=== PATIENT | female | born 1945 | race Caucasian/White ===

== ENCOUNTER → 2016-06-15 | Outpatient (CLI) | payer OTHER, MEDICARE ==
--- NOTE | 2016-06-15 11:13 | MA ---
Screening Digital Mammogram Clinical Indications: Routine screening. Technique: Standard cephalocaudal and mediolateral oblique projections are obtained. This examinati on is processed by the [employer] computer aided detection system. Comparison: February 08, 2015; August 13, 2012; and studies dating back to September 23, 2008. Breast density: B; There are scattered areas of fibroglandular density. Findings: CAD was reviewed. No suspicious findings are identified. There are no new masses, new clus ters of microcalcifications, or significant axillary lymphadenopathy. Impression: Negative mammogram. BI-RADS 1. Recommendation: Routine screening is recommended in one year. [facility] will send a result letter to the patient. Negative mammography should not preclude additional workup of a clinically suspicious finding. The patient's information is entered into a reminder system with a target due date for her next mammo gram.
== END ==
LOC: FIMAGING 10:17
DX: Z12.31 Encounter for screening mammogram for malignant neoplasm of breast (principal)
CPT/HCPCS: G0202

== ENCOUNTER → 2016-08-23 | Outpatient (CLI) | payer OTHER, MEDICARE | LOC: BMCIMAGING 11:34 | PROVIDERS: ATTEND Family Medicine | DX: R93.8 Abnormal findings on diagnostic imaging of other specified body structures (principal); N83.201 Unspecified ovarian cyst, right side; Z78.0 Asymptomatic menopausal state ==

== ENCOUNTER → 2016-08-24 | Outpatient (CLI) | payer OTHER, MEDICARE | LOC: BMCIMAGING 08:31 | PROVIDERS: ATTEND Family Medicine | DX: K80.20 Calculus of gallbladder without cholecystitis without obstruction (principal); K76.89 Other specified diseases of liver ==

== ENCOUNTER 2016-09-21 09:45 | Observation (INO) | payer OTHER, MEDICARE ==
[2016-09-21] MEDS ORDERED: PROPOFOL 200 MG/20 ML VIAL ONE (10:36)
[2016-09-21] MEDS ORDERED: ROCURONIUM 50 MG/5 ML VIAL ONE ×3 (10:37→12:18)
[2016-09-21] MEDS ORDERED: DEXAMETHASONE 4 MG/ML VIAL ONE (10:37)
[2016-09-21] MEDS ORDERED: SURGIFLO MATRIX KIT WITH THROMBIN TP ONE (10:57)
[2016-09-21] MEDS ORDERED: BUPIVACAINE 0.25% 30 ML SDV ONE (10:57)
[2016-09-21] MEDS ORDERED: BUPIVACAINE 0.5% 30 ML SDV ONE (10:57)
[2016-09-21] MEDS ORDERED: SILVER NITRATE APPLICATOR 1 APPL TP ONE (10:58)
[2016-09-21] MEDS ORDERED: cefOXitin SODIUM 1 GM in D5W 50 ML IV ONE (11:00)
[2016-09-21] MEDS ORDERED: METHYLENE BLUE 0.5% 50 MG/10 ML AMP ONE (11:00)
[2016-09-21] MEDS ORDERED: MIDAZOLAM 2 MG/2 ML VIAL ONE (11:05)
[2016-09-21] MEDS ORDERED: PHENYLEPHRINE HCL 100 MCG/ML SYR ONE (11:34)
[2016-09-21] MEDS ORDERED: PHENYLEPHRINE 10 MG/ML SDV ONE (12:06)
[2016-09-21] MEDS ORDERED: ONDANSETRON 4 MG/2 ML VIAL ONE ×2 (12:34→14:37)
[2016-09-21] MEDS ORDERED: GLYCOPYRROLATE 0.2 MG/1 ML VIAL ONE (12:37)
[2016-09-21] MEDS ORDERED: NEOSTIGMINE METHYLSULFATE 5 MG/5 ML SYR ONE (12:37)
[2016-09-21] MEDS ORDERED: KETOROLAC 30 MG/1 ML SDV ONE (12:52)
[2016-09-21] MEDS ORDERED: ONDANSETRON 4 MG/2 ML VIAL IVP PRN (13:06)
[2016-09-21] MEDS ORDERED: HYDROCODONE/APAP 5/325 TAB PO PRN (13:06)
[2016-09-21] MEDS ORDERED: ONDANSETRON DISINTEGRATING 4 MG TAB PO PRN (13:06)
[2016-09-21] MEDS ORDERED: IBUPROFEN 200 MG TAB PO PRN (13:06)
[2016-09-21] MEDS ORDERED: ACETAMINOPHEN 325 MG TAB PO PRN (13:06)
--- NOTE | 2016-09-21 13:13 | POSTOPPROG ---
Post Op Note Date of Operation: 09/21/16 Surgeon: Cruzito Bourgeois Medical Charge Entry Specialist: Dr. Hodge Anesthesiologist: oLnny Anesthesia: GET(General Endotracheal) Pre-op Diagnosis: Cholelithiasis, ovarian cyst Post-op Diagnosis: same Procedure: lap aline, lap BSO, uterine biopsy Inf/Abcess present in the surg proc area at time of surgery?: No EBL: Minimal
[2016-09-21] MEDS ORDERED: NS 1,000 ML IV SCH (13:15)
[2016-09-21] MEDS ORDERED: fentaNYL 100 MCG/2 ML INJ ONE (13:47)
--- NOTE | 2016-09-21 14:00 | GOP ---
[f rep st] OPERATIVE REPORT DATE OF OPERATION: 09/21/2016 SURGEON: Brooklyn Hodge MD ANESTHESIA: General with ET tube. ANESTHESIOLOGIST: Paras Mukherjee MD. PREOPERATIVE DIAGNOSIS: 1. 11 mm right ovarian cyst. 2. Endometrial thickening. 3. Symptomatic cholelithiasis. POSTOPERATIVE DIAGNOSIS: 1. 11 mm right ovarian cyst. 2. Endometrial thickening. 3. Symptomatic cholelithiasis. PROCEDURE PERFORMED: 1. Diagnostic laparoscopy. 2. Lysis of adhesions. 3. Cholecystectomy. 4. Bilateral salpingo-oophorectomy. 5. Dilation and curettage. FINDINGS: Moderate adhesive disease of the bowel to the anterior abdominal wall. Normal uterus, normal left tube and ovary. Sigmoid adhesions at the level of the left IP. Right ovary with a small 1 cm simple appearing cyst. SPECIMENS: Gallbladder, bilateral tubes and ovaries, endometrial curettings. ESTIMATED BLOOD LOSS: 20 mL. INDICATIONS: Patient is a 71-year-old who presents with findings of an 11 mm right ovarian cyst after presenting with abdominal pain and also with findings of gallstones. She was incidentally also found to have a thickened endometrial stripe to 9 mm with no history of postmenopausal vaginal bleeding. Uterine biopsy had been attempted in the office, but insufficient tissue was obtained. She was taken to the operating room after being consented for a bilateral salpingo-oophorectomy, removal of her gallbladder, and repeat endometrial sampling. The risks and benefits of the procedure were discussed, and she desired to proceed with all the procedures concurrently. DESCRIPTION OF PROCEDURE: The patient was taken to the operating room, where a time-out was performed. General anesthesia was obtained with endotracheal tube. She was prepped and draped in the normal sterile fashion in dorsal lithotomy with Roger stirrups. A Marrufo catheter was placed. A sponge stick was placed in the vagina. After injection of 0.25% marcaine a 5 mm incision was made just above the umbilicus. The veress needle was inserted and the abdomen was insufflated to 10 mm hg. Additional ports were placed including a 10 mm upper abdominal port and 2 additional lateral ports under direct visualization after injection of marcaine. We proceeded with diagnostic laparoscopy, lysis of adhesions, and cholecystectomy which will be dictated separately by Dr. Bourgeois. She was then placed in Trendelenburg procedure. Attention was turned to the pelvis. The right ovary and tube were removed after using the gyrus to coagulate and transect the IP followed by the uterine ovarian ligament. The same procedure was done on the left side. Both ureters were visualized prior to transecting the IP ligaments. The ovaries and tubes were placed in an EndoCatch bag and removed intact. Hemostasis was noted. Attention was then turned to the vagina where a speculum was placed. An atraumatic Allis clamp was placed on the posterior aspect of the cervix. The cervix was completely flush with the vagina given the history of prior partial trachelectomy. The cervix was easily dilated to 5 mm. A very small curette was placed, and a gentle curettage was performed with removal of 1 small (~ 5 mm ) endometrial polyp. There was a very small amount of bleeding. The scope was put back in, and the uterus was intact with a possible very small uterine perforation on the posterior aspect of the uterine body which was not bleeding. The bowel showed no signs of any injury. The cervix was then noted to be hemostatic. All instruments were removed. The abdominal incisions were closed after closing the fascia of the 10 mm port with 0 Vicryl, and the skin was closed with 4-0 Monocryl and covered with Steri-Strips. The patient tolerated the procedure well. She will be observed overnight in the hospital as was planned prior to surgery. SURGEON: Arsalan Bourgeois MD. CO-SURGEON: Brooklyn Hodeg MD. FLUIDS: 800 mL. URINE: 250 mL. COMPLICATIONS: None. /[id number]/MODL MTDD
--- NOTE | 2016-09-21 18:06 | SOAPPROG ---
SOAP Progress Note Assessment/Plan: Assessment: POD#0 s/p lsc aline, BSO, D&C Doing well postoperatively Plan: Routine post-op care SLIV Regular diet Restart home meds: clonazepam, amitriptyline, geodon, synthroid, wellbutrin Consider bladder scan if doesn't void in next few hours Expect home in AM 09/21/16 18:04 09/21/16 18:05 Subjective: Pt is feeling great, denies any pain, can feel the 10 mm port site which is a little sore, the others don't hurt at all. No vaginal bleeding. Did eat a regular dinner. Hasn't voided yet or ambulated. Objective: Vital Signs Temp Pulse Resp BP Pulse Ox 36.4 C 74 18 101/68 97 09/21/16 17:00 09/21/16 17:00 09/21/16 17:00 09/21/16 17:00 09/21/16 17:00 09/20/16 09/21/16 09/22/16 05:59 05:59 05:59 Intake Total 1360 Output Total 200 Balance 1160 Gen: NAD, alert, awake Resp: unlabored CV: reg rate Abd: soft, nontender, incisions c/d/i with steri strips apart from small amount of oozing at umbilicus, no hematoma Access Database Developer: no blood on pad Ext: warm, no edema ICD10 Worksheet Patient Problems: Problems Problem Status Onset History of cholecystectomy Acute Hx of salpingo-oophorectomy, bilateral Acute - ICD10 Problem Qualifiers (1) Hx of salpingo-oophorectomy, bilateral (2) History of cholecystectomy
[2016-09-21] MEDS ORDERED: SIMETHICONE 80 MG TAB CHEW PO PRN (20:44)
[2016-09-21] MEDS ORDERED: clonazePAM 1 MG TAB PO SCH ×2 (21:00)
[2016-09-21] MEDS ORDERED: AMITRIPTYLINE HCL 50 MG TAB PO SCH (21:00)
[2016-09-22 05:03] VITALS: O2SAT 95
[2016-09-22] MEDS ORDERED: LEVOTHYROXINE 25 MCG TAB PO SCH (06:00)
[2016-09-22] MEDS ORDERED: ZIPRASIDONE HCL 40 MG CAP PO SCH (07:00)
[2016-09-22] MEDS ORDERED: AMITRIPTYLINE HCL 25 MG TAB PO SCH (07:00)
[2016-09-22 07:43] VITALS: BP 95/62; PULSE 76; RESP 18; TEMP 97.9
[2016-09-22] MEDS ORDERED: buPROPion XL 150 MG TAB PO SCH (08:00)
[2016-09-22] MEDS ORDERED: BUPROPION XL 300MG PO SCH (09:00)
[2016-09-22] MEDS ORDERED: PNEUMOC 13-VAL CONJ-DIP CRM/PF 0.5 ML SYR IM ONE (09:06)
--- NOTE | 2016-09-22 09:12 | GDS ---
[f rep st] DISCHARGE SUMMARY ADMISSION DIAGNOSES: 1. Symptomatic cholelithiasis. 2. 11 mm right ovarian cyst. 3. Asymptomatic thickened endometrial stripe DISCHARGE DIAGNOSES: 1. Symptomatic cholelithiasis. 2. 11 mm right ovarian cyst. 3. Asymptomatic thickened endometrial stripe 4. Status post laparoscopic cholecystectomy and bilateral salpingo- oophorectomy and dilation and curettage. PROCEDURES: Diagnostic laparoscopy, laparoscopic cholecystectomy, laparoscopic bilateral salpingo-oophorectomy, dilation and curettage. HOSPITAL COURSE: The patient is a 71-year-old, who presented in the outpatient setting with abdominal pain, and had imaging that revealed an 11 mm right ovarian cyst, and also gallstones. She was consented to undergo concurrent surgeries, to have both her gallbladder removed, and both ovaries and tubes removed. Also, she was incidentally found to have a thickened endometrial stripe, that was unable to be effectively sampled in the office, so an endometrial curettage was also to be performed. She underwent these procedures without complications, with an estimated blood loss of 20 mL. She was observed overnight in the hospital. She had normal vital signs and urine output and minimal pain after surgery. On postoperative day 1, she was meeting all of her postoperative milestones, including ambulating, voiding, passing flatus, tolerating a regular diet, and with good pain control on p.o. pain medications, for which she was only using Tylenol. She will be discharged home. DISCHARGE INSTRUCTIONS: She was given precautions to call with any concerns, including worsening pain, fevers or chills, nausea, vomiting, or bleeding. She will follow up in the office in 2 weeks. DISCHARGE MEDICATIONS: Tylenol #3 one tab every 4 hours as needed #20, refills 0. CONSULTS: None. COMPLICATIONS: None. /[id number]/MODL MTDD
--- NOTE | 2016-09-22 12:42 | GOP ---
[f rep st] OPERATIVE REPORT DATE OF OPERATION: 09/21/2016 SURGEON: Arsalan Bourgeois MD ANESTHESIA: General endotracheal anesthesia. PREOPERATIVE DIAGNOSIS: Biliary colic. POSTOPERATIVE DIAGNOSIS: Biliary colic. PROCEDURE PERFORMED: Laparoscopic cholecystectomy. FINDINGS: Patient had mild inflammation of the gallbladder. Concomitant laparoscopic bilateral salp ingo-oophorectomy was performed by Dr. Hodge. ESTIMATED BLOOD LOSS: 20 cc. INDICATIONS: This is a 71-year-old female with a history of gallstones. Risks and benefits of the p rocedure were discussed with the patient and family. Their questions were answered, and they wished to proceed. DESCRIPTION OF PROCEDURE: The patient was in the supine position. After the induction of adequate g eneral endotracheal anesthesia, the patient was prepped and draped in the standard surgical fashion. The supraumbilical area was infiltrated with 0.5% Marcaine for local anesthesia. A 5-mm incision wa s made and the abdominal wall was elevated. A Veress needle was inserted and after noting proper pre ssures, the abdomen was insufflated with carbon dioxide. A 5-mm trocar was passed and the camera fol lowed. There was no apparent damage with trocar placement. Three more ports were placed; two 5-mm po rts in the right subcostal area, and one 11-mm port in the subxiphoid area. These were all placed du ring direct vision after injecting 0.5% Marcaine for local anesthesia. The gallbladder was then grasped and elevated. Adhesions were taken down using blunt dissection and cautery. The cystic structures were carefully dissected in a similar fashion. The cystic duct and cy stic artery were clearly identified. In addition, the subhepatic space was dissected. Once this crit ical view was obtained, the cystic duct and cystic artery were clipped and transected with scissors. The gallbladder was then elevated off the liver bed using cautery and blunt dissection. It was with drawn through the subxiphoid port. The abdomen was then inspected and good hemostasis was noted. The fascia at the 11-mm port site was closed using 0 Vicryl in an interrupted fashion. All trocars were removed under direct vision, and t he pneumoperitoneum was allowed to escape. The wounds were thoroughly irrigated and the skin was nona sed with 5-0 Monocryl in a subcuticular stitch. Needle and sponge counts were correct. The wounds we re sterilely dressed. The patient was extubated and taken to the post-anesthesia care unit in stable condition. DRIVER SERVICE TECHNICIAN SURGEON: Brooklyn Hodge MD, whose presence was requested by me and medically necessary fo r the safe and timely completion of the case. COMPLICATIONS: None. DRAINS: None. ADDENDUM: As this was a combined procedure with Dr. Hodge, the right subcostal port was instead cathy hima in the left mid abdomen. Following the cholecystectomy, laparoscopic bilateral salpingo-oophorec nelson was performed. Please see Dr. Hodge's dictation for full details of that procedure. Patient gwen erated both procedures well. /[id number]/MODL
== END 2016-09-22 10:21 | disposition home or self-care (01) ==
LOC: FSGY 09:45 → F3E 13:07
PROVIDERS: ADMIT Obstetrics & Gynecology; ATTEND Obstetrics & Gynecology
PROC: 0FT44ZZ Resection of Gallbladder, Percutaneous Endoscopic Approach (ICD-10-PCS; principal; 2016-09-21 11:45)
PROC: 0UT74ZZ Resection of Bilateral Fallopian Tubes, Percutaneous Endoscopic Approach (ICD-10-PCS; 2016-09-21 11:45)
PROC: 0UB94ZX Excision of Uterus, Percutaneous Endoscopic Approach, Diagnostic (ICD-10-PCS; 2016-09-21 11:45)
PROC: 0UT24ZZ Resection of Bilateral Ovaries, Percutaneous Endoscopic Approach (ICD-10-PCS; 2016-09-21 11:45)
DX: K80.10 Calculus of gallbladder with chronic cholecystitis without obstruction (principal); N83.201 Unspecified ovarian cyst, right side; R93.8 Abnormal findings on diagnostic imaging of other specified body structures; E03.9 Hypothyroidism, unspecified; F32.9 Major depressive disorder, single episode, unspecified; Z96.641 Presence of right artificial hip joint; Z23 Encounter for immunization
CPT/HCPCS: 47562; 58661; 88304; 88305; 88307; 88342; 90670; G0009; J0697; J1100; J1885; J2250; J2370; J2405; J2704; J2710; J3010; Q9968

== ENCOUNTER → 2016-10-17 | Outpatient (CLI) | payer OTHER, MEDICARE | LOC: CIMAGING 09:28 | PROVIDERS: ATTEND Surgery | DX: R10.9 Unspecified abdominal pain (principal); N28.89 Other specified disorders of kidney and ureter; K76.89 Other specified diseases of liver; Z90.49 Acquired absence of other specified parts of digestive tract; Z98.890 Other specified postprocedural states | CPT/HCPCS: 76705-PO ==

== ENCOUNTER 2017-07-31 18:24 | Inpatient (IN) | payer OTHER, MEDICARE ==
[2017-07-31 20:56] LABS: PLATELET COUNT 289 10^3/uL (150-400)
--- NOTE | 2017-07-31 20:59 | EDPHY ---
H & P Smoking Status: Never smoked Time Seen by Provider: 07/31/17 20:04 HPI/ROS: CHIEF COMPLAINT: Depression, Suicidal Ideation HISTORY OF PRESENT ILLNESS: 72-year-old female presents to the emergency department by private vehicle with her feeling depressed and suicidal. Patient has a long history of depression. She has had previous suicide attempts. She has been on multiple different psychiatric medications. Most recently she was started on Seroquel extended release 150 mg approximately 1 month ago. She was prescribed Abilify and was supposed to start this today, however she has not started this medication. Over last 2 weeks she has felt increasingly depressed and suicidal. Her plan would be to shoot herself in the head with a gun. She does not own a gun however. She denies homicidal ideation. Denies auditory or visual hallucinations. She does not abuse drugs or alcohol. She has a psychiatrist and a behavioral therapist in [place]. She has not established one in [place]. Her states that she has these episodes where she is calm 1 min and then she becomes extremely tearful and yells and throws things. Both the patient and her at bedside feel strongly that she should be hospitalized. The patient does tell me that when she from her 1st a number of years ago, she states "I lost my 2 children and I have never gotten over it." REVIEW OF SYSTEMS: Constitutional: No fever, no chills. Eyes: No double or blurry vision. ENT: No sore throat. Respiratory: No cough, no shortness of breath. Cardiac: No chest pain. Gastrointestinal: No abdominal pain, vomiting or diarrhea. Genitourinary: No dysuria. Musculoskeletal: No neck or back pain. Skin: No rashes. Neurological: No headache. (Alee Stone) Past Medical/Surgical History: Depression (Alee Stone) Social History: , originally from [place] (Alee Stone) Physical Exam: General Appearance: Alert, no distress. Mentating normally and answering questions appropriately. at bedside. Eyes: Pupils equal and round. Extraocular motions are all intact. ENT: Mouth: Mucous membranes moist. Respiratory: No wheezing, rhonchi, or rales, lungs are clear to auscultation. Cardiovascular: Regular rate and rhythm. Gastrointestinal: Abdomen is soft and nontender, no masses, no rebound or guarding, bowel sounds normal. Neurological: Alert and oriented x 3, cranial nerves II through XII grossly intact Skin: Warm and dry, no rashes. Musculoskeletal: Nontender to palpate along the cervical, thoracic or lumbar spine. Neck is supple. Extremities: Full range of motion and no peripheral edema. Psychiatric: Patient is oriented X 3, there is no agitation. (Alee Stone) Constitutional: Initial Vital Signs Temperature (C) 36.3 C 07/31/17 18:32 Heart Rate 85 07/31/17 18:32 Respiratory Rate 16 07/31/17 18:32 Blood Pressure 140/89 H 07/31/17 18:32 O2 Sat (%) 97 07/31/17 18:32 O2 Delivery Mode Room Air Allergies/Adverse Reactions: Sulfa (Sulfonamide Antibiotics) Allergy (Verified 07/31/17 18:28) Vomiting Home Medications: Medication Instructions Recorded Clonazepam 2 mg PO HS 09/15/16 Amitriptyline HCl [Elavil] 25 mg PO DAILY@12 09/21/16 Amitriptyline HCl [Elavil] 50 mg PO BID@,09/21/16 Bupropion HCl [Wellbutrin Xl] 300 mg PO DAILY 09/21/16 Cholecalciferol Vit D3 [Vitamin D3 2,000 units PO DAILY 09/21/16 (*)] Herbals/Supplements -Info Only 1 ea PO DAILY 09/21/16 Levothyroxine [Synthroid 25 mcg 25 mcg PO DAILY06 09/21/16 (*)] Vit A/Vit C/Vit E/Zinc/Copper 1 cap PO DAILY 09/21/16 [Preservision Areds Softgel] buPROPion XL [Wellbutrin 150mg XL] 150 mg PO DAILY18 09/21/16 Acetaminophen with Codeine 1 tab PO Q4H #20 tab 09/22/16 [Tylenol #3] Aripiprazole 07/31/17 Biotin 07/31/17 Preservision Softgel 07/31/17 Quetiapine Fumarate 07/31/17 Medical Decision Making - Diagnostics EKG Interpretation: ECG time 1:17 a.m., sinus rhythm with a rate of 73, normal axis, normal intervals, there is a nonspecific intraventricular conduction delay. Normal QRS duration. No acute ST or T-wave changes. (Janak Diallo) ED Course/Re-evaluation: 72-year-old female presents to the emergency department feeling depressed and suicidal. She was placed on a hold by myself. She will be medically cleared and then evaluated by mental health. (Alee Stone) Differential Diagnosis: Depression including functional and major depression, situational depression, medication side effect, drugs and alcohol abuse. (Alee Stone) Other Provider: 0005 care assumed by me from MERLIN Stone pending placement. 0100 psychiatry is requesting ECG. Is been obtained. No acute changes. 0233 patient has been accepted to [address] Johns. I have completed the EMT A LA. (Janak Diallo) Care Turn Over: Care will be turned over to Dr. Diallo at midnight. (Alee Stone) - Data Points Laboratory Results: Laboratory Results 07/31/17 20:45 07/31/17 20:45 07/31/17 07/31/17 07/31/17 20:45 20:45 20:40 WBC 8.95 10^3/uL 10^3/uL (3.80-9.50) RBC 4.16 10^6/uL L 10^6/uL (4.18-5.33) Hgb 13.7 g/dL g/dL (12.6-16.3) Hct 41.4 % % (38.0-47.0) MCV 99.5 fL fL (81.5-99.8) MCH 32.9 pg pg (27.9-34.1) MCHC 33.1 g/dL g/dL (32.4-36.7) RDW 13.7 % % (11.5-15.2) Plt Count 289 10^3/uL 10^3/uL (150-400) MPV 9.1 fL fL (8.7-11.7) Neut % (Auto) 49.7 % % (39.3-74.2) Lymph % (Auto) 41.6 % % (15.0-45.0) [place] % (Auto) 5.5 % % (4.5-13.0) Eos % (Auto) 1.9 % % (0.6-7.6) Baso % (Auto) 0.9 % % (0.3-1.7) Nucleat RBC Rel Count 0.0 % % (0.0-0.2) Absolute Neuts (auto) 4.45 10^3/uL 10^3/uL (1.70-6.50) Absolute Lymphs (auto) 3.72 10^3/uL H 10^3/uL (1.00-3.00) Absolute Monos (auto) 0.49 10^3/uL 10^3/uL (0.30-0.80) Absolute Eos (auto) 0.17 10^3/uL 10^3/uL (0.03-0.40) Absolute Basos (auto) 0.08 10^3/uL 10^3/uL (0.02-0.10) Absolute Nucleated RBC 0.00 10^3/uL 10^3/uL (0-0.01) Immature Gran % 0.4 % % (0.0-1.1) Immature Gran # 0.04 10^3/uL 10^3/uL (0.00-0.10) Sodium 141 mEq/L mEq/L (135-145) Potassium 4.2 mEq/L mEq/L (3.5-5.2) Chloride 108 mEq/L mEq/L (97-110) Carbon Dioxide 21 mEq/l L mEq/l (22-31) Anion Gap 12 mEq/L mEq/L (8-16) BUN 21 mg/dL mg/dL (7-23) Creatinine 1.0 mg/dL mg/dL (0.6-1.0) Estimated GFR 55 Glucose 94 mg/dL mg/dL (70-100) Calcium 9.7 mg/dL mg/dL (8.5-10.4) TSH 2.140 uIU/mL uIU/mL (0.465-4.680) Urine Opiates Screen NEGATIVE (NEGATIVE) Urine Barbiturates NEGATIVE (NEGATIVE) Ur Phencyclidine Scrn NEGATIVE (NEGATIVE) Ur Amphetamine Screen NEGATIVE (NEGATIVE) U Benzodiazepines Scrn NEGATIVE (NEGATIVE) Urine Cocaine Screen NEGATIVE (NEGATIVE) U Marijuana (THC) Screen NEGATIVE (NEGATIVE) Ethyl Alcohol < 10 mg/dL mg/dL (0-10) Medications Given: Discontinued Medications Clonazepam (Klonopin) 2 mg PO EDNOW ONE Stop: 07/31/17 22:40 Last Admin: 07/31/17 22:42 Dose: 2 mg Clonazepam (Klonopin) 2 mg PO EDNOW ONE Stop: 08/01/17 00:45 Last Admin: 08/01/17 00:59 Dose: 2 mg Departure - Departure Disposition: [facility] IP Clinical Impression: Suicidal ideation Depression Qualifiers: Depression Type: unspecified Qualified Code(s): F32.9 - Major depressive disorder, single episode, unspecified Condition: Good Referrals: KALI DURAN [Primary Care Provider] - As per Instructions
[2017-07-31] MEDS ORDERED: clonazePAM 1 MG TAB PO ONE (22:39)
[2017-08-01] MEDS ORDERED: clonazePAM 1 MG TAB PO ONE ×2 (00:44→03:00)
--- NOTE | 2017-08-01 01:19 | CPEKG ---
Heart Rate: 73 RR Interval: 822 P-R Interval: 212 QRSD Interval: 114 QT Interval: 444 QTC Interval: 490 P Barre: 56 QRS Barre: 12 T Wave Barre: 93 EKG Severity - ABNORMAL ECG - EKG Impression: SINUS RHYTHM EKG Impression: NONSPECIFIC INTRAVENTRICULAR CONDUCTION DELAY Electronically Signed By: Janak Diallo 01-Aug-2017 03:47:50
[2017-08-01] MEDS ORDERED: MAGNESIUM HYDROXIDE 30 ML UDCUP PO PRN (01:40)
[2017-08-01] MEDS ORDERED: ACETAMINOPHEN 325 MG TAB PO PRN (01:40)
[2017-08-01] MEDS ORDERED: MAG HYDROX/AL HYDROX/SIMETH 30 ML UDCUP PO PRN (01:40)
[2017-08-01] MEDS ORDERED: AMITRIPTYLINE HCL 50 MG TAB PO ONE (02:47)
[2017-08-01] MEDS: LORazepam 0.5 MG TAB PO PRN ×2 (04:14→17:06)
[2017-08-01] MEDS: clonazePAM 1 MG TAB PO SCH ×2 (09:04→20:24)
[2017-08-01] MEDS: buPROPion XL 150 MG TAB PO SCH ×2 (11:29→17:06)
[2017-08-01] MEDS: ARIPiprazole 2 MG TAB PO SCH (11:31)
[2017-08-01] MEDS: LEVOTHYROXINE 25 MCG TAB PO SCH (11:45)
[2017-08-01] MEDS ORDERED: AMITRIPTYLINE HCL 50 MG TAB ONE (16:09)
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
[2017-08-01] MEDS: AMITRIPTYLINE HCL 25 MG TAB PO SCH (17:06)
--- NOTE | 2017-08-01 17:31 | BCON ---
[f rep st] BEHAVIORAL HEALTH CONSULTATION INTERNAL MEDICINE CONSULTATION DATE OF CONSULTATION: 08/01/2017 REFERRING PHYSICIAN: Bettye Johns MD REASON FOR REFERRAL: Medical clearance for behavioral health stay. HISTORY OF PRESENT ILLNESS: This patient came to the emergency department with her , feeling depressed and suicidal. She has had previous suicide attempts. She was evaluated by the mental health team and admitted for further psychiatric care. She is currently without any acute complaints. PAST MEDICAL HISTORY: 1. Depression. 2. Cholecystitis. 3. Endometriosis. 4. Ovarian cyst. 5. Hypothyroidism. PAST SURGICAL HISTORY: 1. Cholecystectomy. 2. Bilateral salpingo-oophorectomy. 3. Endometrial curettage. 4. Lysis of adhesions. These were all done in 1 procedure. MEDICATIONS: 1. Levothyroxine 12.5 mcg p.o. daily. 2. Clonazepam 2 mg p.o. b.i.d. p.r.n. and 2 mg p.o. q.h.s. 3. Cholecalciferol 2000 units p.o. daily. 4. Bupropion 300 mg p.o. daily and 150 mg p.o. daily at 1800. 5. Amitriptyline 25 mg p.o. daily at noon and 50 mg twice daily at 0700 and 1800. ALLERGIES: Listed to sulfonamides with a reaction of vomiting. 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 She moved to [place] 12 years ago from [place]. Previously, she is an immigrant from [place]. She is a nonsmoker and a nondrinker. FAMILY HISTORY: Noncontributory. REVIEW OF SYSTEMS: She reports that she has had some weight gain. She also thinks that she has had a reduced appetite. She has some abdominal pain which has been persistent since her surgery ,and she reports that she and her physician are seeking the cause of it. She denies nausea, vomiting, constipation, or diarrhea. She denies chest pain or palpitations. She denies cough or dyspnea. She denies dysuria or urinary frequency. She does not snore. She sleeps well. Otherwise, a 10-point review of systems is negative. PHYSICAL EXAM: VITALS: Blood pressure is 118/79, heart rate 72, respiratory rate 14, oxygen saturation is 95% on room air, temperature is 36.3 degrees centigrade. Her weight is 70 kg, for a body mass index of 25.7, and an approximate 2.22 kg weight gain is documented in the chart since September of last year. GENERAL: This is a well-nourished, well-developed, overweight-appearing woman, cooperative, and in no acute distress. HEENT: Extraocular movements are intact. Pupils are equal, round, and reactive to light. Mucous membranes are moist. Dentition is in good condition. She has an uncrowded airway, Mallampati class 1. NECK: Supple. HEART: There is a regular rate and rhythm with no murmurs, rubs, or gallops. LUNGS: Clear to auscultation bilaterally. ABDOMEN: Benign. EXTREMITIES: There is no cyanosis, clubbing, or edema. NEUROLOGIC: She is alert and oriented x3. Cranial nerves 2-12 are grossly intact. There is no focal weakness, and sensation is intact to light touch. LABORATORY STUDIES: Drawn in the emergency department. CBC was overall within normal limits. She had a very slight decrement of the red blood cell count of no clinical significance and slightly high absolute lymphocytes, also of no clinical significance. Chemistry revealed a slightly low carbon dioxide of 21. Otherwise, renal function and electrolytes were within normal limits. TSH was normal at 2.14. Toxicology screen in the serum was negative for ethyl alcohol and in the urine was negative for any substances of abuse. She had an EKG done which showed normal sinus rhythm and nonspecific interventricular conduction delay. ASSESSMENT/RECOMMENDATIONS: 1. Mental health issues, pending further evaluation and management per Psychiatry and the mental health team. 2. Mildly overweight, as well as recent weight gain. Consider avoiding medications which might cause further weight gain, however, psychosocial stabilization is her first priority at present. 3. Abdominal pain of unclear etiology. She is not currently distressed by this , and no further workup is indicated while she is on inpatient behavioral health. I see no medical contraindications to this patient's continued stay on the inpatient behavioral health unit or to any psychiatric medications or procedures. Thank you very much for including me in the care of this patient, and please do not hesitate to contact me or the hospitalist service should there be need for further medical evaluation. /[id number]/MODL MTDD
[2017-08-02] MEDS: AMITRIPTYLINE HCL 25 MG TAB PO SCH ×3 (06:23→18:52)
[2017-08-02 06:44] VITALS: PULSE 75; O2SAT 91
[2017-08-02] MEDS ORDERED: VIT A PO SCH (09:00)
[2017-08-02] MEDS ORDERED: [UNRECOGNIZED DRUG - OTHER] PO SCH (09:00)
[2017-08-02] MEDS ORDERED: COPPER PO SCH (09:00)
[2017-08-02] MEDS ORDERED: PRESERVISION AREDS2 FORMULA EYE VIT 1 EACH PO SCH (09:00)
[2017-08-02] MEDS ORDERED: VIT C PO SCH (09:00)
[2017-08-02] MEDS ORDERED: VIT E PO SCH (09:00)
[2017-08-02] MEDS ORDERED: ZINC PO SCH (09:00)
[2017-08-02] MEDS: CHOLECALCIFEROL VIT D3 1,000 UNITS TAB PO SCH (09:03)
[2017-08-02] MEDS: buPROPion XL 150 MG TAB PO SCH ×2 (09:04→18:53)
[2017-08-02] MEDS: clonazePAM 1 MG TAB PO SCH ×2 (09:05→20:22)
[2017-08-02] MEDS: ARIPiprazole 2 MG TAB PO SCH (09:05)
[2017-08-02] MEDS: LORazepam 0.5 MG TAB PO PRN ×2 (13:01→21:52)
[2017-08-02] MEDS: LEVOTHYROXINE 25 MCG TAB PO SCH (13:22)
--- NOTE | 2017-08-02 14:35 | SOAPPROG ---
SOAP Progress Note Assessment/Plan: Assessment: Plan: 08/02/17 14:35 Mood: Some overall improvement. Will CCM. Likely d/c tomorrow at the expiration of her M-1 hold. Need to arrange local f/u with therapist and prescriber. Subjective: Pt seen, discussed with staff. Reports being "infuriated" by her inability to have her makeup and to cut her meat at lunch with a plastic knife. She continues to focus on her perception of the unit as "fpc." I met with her and her to discuss her treatment and f/u plans. They are both receptive to getting local providers. Tolerating Abilify well. Describes mood as improved with exception of anger over unit rules. Objective: Vital Signs Temp Pulse Resp BP Pulse Ox 36.2 C 75 16 109/60 91 L 08/02/17 06:00 08/02/17 06:00 08/02/17 06:00 08/02/17 06:00 08/02/17 06:00 MSE: Calm, coop. Somewhat hostile and sarcastic at the beginning of the meeting, but better as we went along. Affect is constricted, stable, approp. Mood is "angry." TP linear. TC reveals no psychosis. Denies SI. - Time Spent With Patient Time Spent With Patient: 45" ICD10 Worksheet Patient Problems: Problems Problem Status Onset Depression Acute Suicidal ideation Acute History of cholecystectomy Acute Hx of salpingo-oophorectomy, bilateral Acute
[2017-08-03] MEDS: LEVOTHYROXINE 25 MCG TAB PO SCH ×2 (06:31→06:47)
[2017-08-03] MEDS: AMITRIPTYLINE HCL 25 MG TAB PO SCH ×2 (06:48→11:55)
[2017-08-03 07:02] VITALS: BP 114/75; RESP 14; TEMP 98.2
[2017-08-03] MEDS: buPROPion XL 150 MG TAB PO SCH (08:25)
[2017-08-03] MEDS: CHOLECALCIFEROL VIT D3 1,000 UNITS TAB PO SCH (08:25)
[2017-08-03] MEDS: clonazePAM 1 MG TAB PO SCH (08:26)
[2017-08-03] MEDS: ARIPiprazole 2 MG TAB PO SCH (08:26)
[2017-08-03] MEDS ORDERED: PRESERVISION AREDS2 FORMULA EYE VIT 1 EACH PO SCH (09:00)
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
== END 2017-08-03 12:30 | disposition home or self-care (01) | DRG 885 ==
LOC: BBEH 08-01 03:30
PROVIDERS: ADMIT Psychiatry & Neurology Behavioral Neurology & Neuropsychiatry; ATTEND Psychiatry & Neurology Psychiatry
DX: F33.2 Major depressive disorder, recurrent severe without psychotic features (principal); E03.9 Hypothyroidism, unspecified
CPT/HCPCS: 80305; G0480

== ENCOUNTER → 2017-11-06 | Outpatient (CLI) | payer OTHER, MEDICARE | LOC: FIMAGING 09:25 | PROVIDERS: ATTEND Obstetrics & Gynecology | DX: Z86.018 Personal history of other benign neoplasm (principal); Z90.722 Acquired absence of ovaries, bilateral ==